=== PATIENT | female | born 1945 | race Caucasian/White ===

== ENCOUNTER → 2017-05-15 | Outpatient (CLI) | payer MEDICARE ==
[~2017-05-15] MED LIST: AMLODIPINE BESYL5 MG PO; ASPIRIN EC81 M1 PO; CALCIUM; CALCIUM + D 6001 TA1 PO; DESYREL50 M1 PO; DESYREL50 MG PO; FOLIC ACID800 MCG PO; HYDROCODON-ACE1 EAC7 PO; IBUPROFEN PO; LIPITOR40 MG PO; LISINOPRIL-HCTZ1 T14 PO; PRAMIPEXOLE DI0.5 MG PO; VIT E; ZOLOFT100 MG PO
--- NOTE | ~2017-05-15 | XA30 ---
[facility] A Service of [facility] RADIOLOGY TEXT RESULTS PATIENT: JOYCELYN PASCUAL LOCATION: CIVR : 47 UNIT #: [id number] AGE: [address]: Sharath Peña MD SEX: F ORDER DR: [id number] [facility] [address] [place], [place] [address] [id number] O MR#: [id number] Acc #: [id number] NAME: JOYCELYN PASCUAL : 1945 SEX: F STUDY DATE/TIME: 05/15/2017 7:55 [facility]: STUDY DESCRIPTION: XA Arthrocentesis Major Joint Attending Physician: Sharath Peña M.D. Referring Physician: Sharath Peña M.D. Ordering Physician: Sharath Peña M.D. Primary Care Physician: Cosme West M.D. MEDICAL IMAGING REPORT This report is preliminary unless electronic signature is present EXAM Fluoroscopically-guided right hip injection. INDICATION Right hip pain. PROCEDURE The risks, benefits, and alternatives to the procedure were explained to the patient, and signed, informed consent was obtained. She was placed supine on the angiographic table and was prepped and draped usual sterile fashion. Time-out was performed as per protocol. Skin and subcutaneous tissues were anesthetized with buffered lidocaine and a 22-gauge spinal needle was advanced into the joint space. Contrast was injected, which confirmed location within the joint space. Then instilled a combination of lidocaine, bupivacaine and Depo-Medrol. Needle was then removed and manual pressure was applied until hemostasis was obtained. Fluoroscopy time 0.2 minutes AK was 2 mGy. IMPRESSION Technically successful fluoroscopically-guided right hip injection as noted above. Fluoroscopy was used during the procedure and permanent images were saved. Dictated by... Tracy Valderrama M.D. THIS IS AN ELECTRONICALLY VERIFIED REPORT Tracy Valderrama M.D. at 05/16/2017 4:55 PM AFF/gz TD: 05/16/2017 12:54 JOB #: [id number] [facility] A Service of [facility] RADIOLOGY TEXT RESULTS PATIENT: JOYCELYN PASCUAL LOCATION: [facility] #: [id number] : 47 UNIT #: [id number] AGE: [address]: Sharath Peña MD SEX: F ORDER DR: MEDICAL IMAGING REPORT Page 1 of 1 COPY
== END | disposition home or self-care (01) ==
LOC: CIVR 07:40
DX: M16.11 Unilateral primary osteoarthritis, right hip (principal)
CPT/HCPCS: 77002; J1030; Q9966